=== PATIENT | male | born 1965 | race Asian ===

== ENCOUNTER → 2019-04-08 12:43 | Day surgery (SDC) | payer BC ==
[~2019-04-08 12:43] MED LIST: Acetaminophen TAB* 325 MG ONE; Acetaminophen TAB* 325 MG PO ONE; Buffered Lidocaine 1% SYRIN* 1 ML/SYRINGE INTRADERM ONE; Bupivacaine 0.25% SDV* 30 ML ONE; Lactated Ringers 1000 ML Bag* 1,000 ML IV SCH; Lidocaine 1% w EPI 1:200,000* SDV 30 ML VIAL ONE; Sodium Bicarbonate 8.4%* 50 ML SYRINGE ONE
[2019-04-08 15:47] VITALS: BP 143/90
--- NOTE | 2019-04-09 04:00 | OP ---
OPERATIVE REPORT: DATE OF OPERATION: 04/08/19 - SDS DATE OF : 69 SURGEON: Terrell Mendoza MD CASUALTY CLAIM ADJUSTER: REJI Palma ANESTHESIOLOGIST: None. ANESTHESIA: Local only with 1% lidocaine with epinephrine and bicarbonate. PRE-OPERATIVE DIAGNOSIS: Left de Quervain's tendonitis. POST-OPERATIVE DIAGNOSIS: Left de Quervain's tendonitis. OPERATIVE PROCEDURE: Left de Quervain's release. INDICATIONS: Mr. Arambula has the aforementioned condition. We talked about treatment options, risks and benefits. He wanted to have the release performed. ESTIMATED BLOOD LOSS: 2 mL. COMPLICATIONS: None. FINDINGS: See above and below. DESCRIPTION OF PROCEDURE: Mr. Arambula was seen in the preoperative holding area. The correct site, side, and procedures were identified. I injected the area with 1% buffered lidocaine with epinephrine. We came back to the operating room and the arm was prepped and draped in the usual fashion. The arm was exsanguinated and tourniquet was inflated to 200 mmHg. I made a 2 cm transverse incision just proximal to the radial styloid. Dissection was carried down. Full-thickness flaps were raised off the tendon sheath. The Ragnell retractors were placed. Tendon sheath was released along its dorsal margin. There was an accessory compartment. I went ahead and released the entirety of the accessory compartment. Tenosynovitis was excised. I confirmed the release. I debulked a very thickened tendon sheath. At this point, everything was looking good. The wound was irrigated out. The skin was closed with 4-0 Monocryl and a Steri-Strip. Soft dressing was applied and he was taken to the recovery room in stable condition. [id number]/[facility] #: [id number] [facility]
== END | disposition home or self-care (01) ==
LOC: OR 12:43
PROVIDERS: ATTEND Orthopaedic Surgery Hand Surgery
DX: M65.4 Radial styloid tenosynovitis [de Quervain] (principal); I10 Essential (primary) hypertension; E78.5 Hyperlipidemia, unspecified; K21.9 Gastro-esophageal reflux disease without esophagitis; E11.9 Type 2 diabetes mellitus without complications; Z79.84 Long term (current) use of oral hypoglycemic drugs; F41.9 Anxiety disorder, unspecified
CPT/HCPCS: A9270-GY; J2001; J3490